=== PATIENT | female | born 2000 | race Caucasian/White ===

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

== ENCOUNTER 2021-02-26 13:50 | Emergency (ER) | payer OTHER, SELFPAY ==
--- NOTE | ~2021-02-26 | XR_ITS ---
EXAMINATION: XR wrist LT min 3V DATE: 02/26/2021 14:04 INDICATION: Left wrist pain TECHNIQUE: Posteroanterior, ulnar deviation, oblique, and lateral views of the left wrist were obtain ed. COMPARISON: None available FINDINGS: There is no fracture, dislocation, or subluxation. The bones, soft tissues, and joint space s are normal. IMPRESSION: 1. No acute osseous abnormality. Reviewed, dictated and finalized at location A. M SHOVELMAN
[2021-02-26 13:57] VITALS: BP 143/87; PULSE 99; RESP 16; TEMP 36.6; O2SAT 100
--- NOTE | 2021-02-26 13:58 | ED.UPPEXIN ---
HPI - Extremity Injury (Upper) General Chief Complaint: Extremity Injury, Upper Stated Complaint: lt wrist injury Time Seen by Provider: 02/26/21 14:00 Source: patient, RN notes reviewed and old records reviewed Mode of arrival: ambulatory Limitations: no limitations History of Present Illness HPI narrative: 20 year old female presents to [facility] with complaints of left wrist pain along ulnar side with no known injury to her left wrist. Patient reports pain to her left wrist for the past 2 days with movement. Patient reports increase pain with supination of her left hand at the ulnar aspect of her left wrist Patient reports no tingling or numbness to her left hand or arm, patient has strong left radial pulse, nail bed have brisk capillary refill. MD complaint: injury to: left and wrist Related Data Allergies Allergy/AdvReac Type Severity Reaction Status Date / Time Sulfa (Sulfonamide Allergy Rash Verified 10/25/20 14:07 Antibiotics) Review of Systems Review of Systems: CONSTITUTIONAL: Denies fever, chills, or sweats. EYES: Denies visual changes, redness, or discharge. ENT: Denies rhinorrhea, congestion, sore throat, or otalgia. CARDIOVASCULAR: Denies chest pain, palpitations, or edema. RESPIRATORY: Denies cough or dyspnea. GASTROINTESTINAL: Denies abdominal pain, nausea, vomiting, or diarrhea. GENITOURINARY: Denies dysuria or hematuria. SKIN: Denies rash or itching. MUSCULOSKELETAL: Denies back pain,positive for left outer wrist joint pain, or myalgia. NEUROLOGIC: Denies headache, numbness, or weakness. PSYCHIATRIC: Denies anxiety or depression. All systems reviewed & are unremarkable except as noted in HPI and below PMFSH Past Medical History Medical History (Updated 02/26/21 @ 14:27 by Lexus Alfaro NP) Acid reflux UTI (urinary tract infection) Surgical History Surgical History (Updated 02/26/21 @ 14:27 by Lexus Alfaro NP) No history of previous surgery Family History Family History Grandparent Blood clot in vein Breast cancer Diabetes mellitus Hypertension Father Hypertension Social History Social History Smoking status: Never smoker Alcohol intake: never Substance use: never Gender identity (if verbalized by the patient): Female Comments At time of signature, agree with nursing past medical, surgical, social and family history. There is no relevant family history pertinent to the presenting complaint Exam Narrative: GENERAL: Well-appearing, well-nourished, and in no acute distress. HEAD: Normocephalic, atraumatic. EYES: PERRLA and EOMI. ENT: Nares clear, no rhinorrhea or epistaxis. Mucous membranes moist. NECK: Supple. no lymphadenopathy CHEST: Clear to auscultation. No respiratory distress.SAO2 100% on room air HEART: Regular rate and rhythm. No murmur heard. Normal peripheral pulses. ABDOMEN: Soft, nontender, nondistended, normal active bowel sounds. EXTREMITIES: Normal range of motion. No edema.painful ROM to her left wrist along ulnar side with no acute swelling, full ROM noted but with stated discomfort.Patient has strong left radial pulse with left hand and fingers pink and warm with brisk capillary refill to nail beds, patient denies any tingling or numbness to left hand or forearm. SKIN: Warm, dry, no rash. NEURO: No focal deficits. Alert and oriented x3. Course Vital Signs Vital signs: Vital Signs Temperature 36.6 C 02/26/21 13:57 Pulse Rate 99 02/26/21 13:57 Respiratory Rate 16 02/26/21 13:57 Blood Pressure 143/87 H 02/26/21 13:57 Pulse Oximetry 100 02/26/21 13:57 Temperature 36.6 C 02/26/21 13:57 Pulse Rate 99 02/26/21 13:57 Respiratory Rate 16 02/26/21 13:57 Blood Pressure 143/87 H 02/26/21 13:57 Pulse Oximetry 100 02/26/21 13:57 MDM - Extremity Injury (Upper) Differential Diagnosis Differential diagn
== END 2021-02-26 14:23 | disposition home or self-care (01) ==
PROVIDERS: Emergency Provider Registered Nurse; PCP Pediatrics
DX: S63.502A Unspecified sprain of left wrist, initial encounter (principal); S66.912A Strain of unspecified muscle, fascia and tendon at wrist and hand level, left hand, initial encounter; X58.XXXA Exposure to other specified factors, initial encounter; K21.9 Gastro-esophageal reflux disease without esophagitis
CPT/HCPCS: 73110; 99213; G0463

== ENCOUNTER → 2021-03-15 08:36 | Outpatient (CLI) | payer OTHER, SELFPAY ==
[2021-03-16 02:02] LABS: SARS-CoV-2 RNA PCR Negative
== END ==
PROVIDERS: PCP Pediatrics; Visit Provider Pediatrics
DX: R09.81 Nasal congestion (principal); R06.7 Sneezing; Z20.822 Contact with and (suspected) exposure to COVID-19
CPT/HCPCS: C9803; U0003; U0005

== ENCOUNTER 2021-04-04 12:22 | Outpatient (CLI) | payer OTHER, SELFPAY ==
[2021-04-04 13:54] LABS: SARS-CoV-2 RNA PCR Positive (Negative)
== END 2021-04-04 12:23 | disposition home or self-care (01) ==
LOC: CHSLAB 12:24
PROVIDERS: PCP Pediatrics; Visit Provider Pediatrics
DX: U07.1 COVID-19 (principal)
CPT/HCPCS: C9803; U0003; U0005

== ENCOUNTER 2021-06-15 17:36 | Emergency (ER) | payer OTHER, SELFPAY ==
[2021-06-15 17:42] VITALS: BP 132/79; PULSE 82; RESP 16; TEMP 36.6; O2SAT 100
--- NOTE | 2021-06-15 17:50 | ED.BACK ---
HPI - Back Pain/Injury General Chief Complaint: Back Pain/Injury Stated Complaint: BACK PAIN/CHEST PAIN Time Seen by Provider: 06/15/21 17:45 Source: patient Mode of arrival: ambulatory Limitations: no limitations History of Present Illness HPI Narrative: Ms. Clark is a 20-year-old female patient presenting to the clinic today with complaints of mid back pain/mid chest pain that started today. She reports that her back pain began when she woke up this morning but that has since resolved but when she went to work this evening she began to have midsternal chest pain that was sharp. She rates her pain a 6 out of 10 currently. Pain is nonradiating. She denies any shortness of breath, dizziness, palpitations,or current back pain. Does have a history of GERD denies any burning sensation with this chest discomfort. She denies any fever chills or any urinary symptoms. When asked what she ate prior to this episode she had stated she has not eaten yet. No history of any cardiac issues in the past. No history of anxiety. Denies recent working out or any heavy lifting. Just finished her shift at [employer] prior to arrival to the [facility]. MD elicited complaint: back pain and other (Midsternal chest pain) Related Data Allergies Allergy/AdvReac Type Severity Reaction Status Date / Time Sulfa (Sulfonamide Allergy Rash Verified 10/25/20 14:07 Antibiotics) Review of Systems Review of Systems: Pertinent positives per HPI. Patient denies any fever, chills, rash, headache, visual changes, dizziness, cough, runny nose, sore throat, shortness of breath, palpitations, nausea, vomiting, diarrhea, constipation, abdominal pain, or any urinary issues. [facility] Past Medical History Medical History Acid reflux UTI (urinary tract infection) Surgical History Surgical History No history of previous surgery Family History Family History Grandparent Blood clot in vein Breast cancer Diabetes mellitus Hypertension Father Hypertension Social History Social History Smoking status: Never smoker Alcohol intake: never Substance use: never Gender identity (if verbalized by the patient): Female Comments At the time of my signature, I reviewed and agree with the nursing past medical, surgical, social, and family history. There is no relevant family history pertinent to the patient complaint. Exam Narrative: General: Well-developed, obese, in no apparent distress. Head: Normocephalic, atraumatic Chest: Grossly normal appearance, even chest rise and fall with inspiration and expiration, pain to light palpation over the upper sternum Cardio: Regular rate and rhythm, s1 and s2 normal, no murmur appreciated. Resp: Clear to auscultation bilaterally, no rhonchi, rales, wheezing or rubs. Abdomen: Soft, pliable, bowel sounds present in all quadrants, non-tender to palpation, no organomegly, no CVAT tenderness. Course Course Emergency Course: Portions of this record may have been created with voice recognition software. Level of Care: Express Care Visit Vital Signs Vital signs: Vital Signs Temperature 36.6 C 06/15/21 17:42 Pulse Rate 82 06/15/21 17:42 Respiratory Rate 16 06/15/21 17:42 Blood Pressure 132/79 06/15/21 17:42 Pulse Oximetry 100 06/15/21 17:42 Temperature 36.6 C 06/15/21 17:42 Pulse Rate 82 06/15/21 17:42 Respiratory Rate 16 06/15/21 17:42 Blood Pressure 132/79 06/15/21 17:42 Pulse Oximetry 100 06/15/21 17:42 Vital signs reviewed MDM - Back Pain/Injury MDM Narrative Medical decision making narrative: At the time of assessment patient is resting comfortably, rating her pain a 6 out of 10-stating it is a stabbing pain in the mid upper ches
--- NOTE | 2021-06-15 17:55 | ECG_ITS ---
Measurements Intervals Shanks Rate: 75 P: 19 ME: 169 QRS: 14 QRSD: 100 T: 15 QT: 364 QTc: 407 Interpretive Statements SINUS RHYTHM NO PREVIOUS ECG AVAILABLE FOR COMPARISON Electronically Signed On 06-16-2021 13:55:15 CDT by Karol Kimball M.D.
== END 2021-06-15 18:16 | disposition home or self-care (01) ==
PROVIDERS: Emergency Provider Nurse Practitioner Family; PCP Pediatrics
DX: M94.0 Chondrocostal junction syndrome [Tietze] (principal); K21.9 Gastro-esophageal reflux disease without esophagitis
CPT/HCPCS: 93005; 99213; G0463

== ENCOUNTER 2021-06-16 03:15 | Emergency (ER) | payer OTHER, SELFPAY ==
[2021-06-16 03:16] VITALS: PULSE 88; RESP 16; TEMP 36.6; O2SAT 100
--- NOTE | 2021-06-16 03:23 | ED.EAR ---
HPI - Ear Problem General Chief complaint: Ear Stated complaint: Ear problems Time Seen by Provider: 06/16/21 03:23 Source: patient and family History of Present Illness HPI Narrative: 20-year-old female presents to the ER with -- woke up this morning with severe left-sided ear pain. -- Left ear discharge for the past few days -- sore throat. Patient went to and urgent care yesterday evening for chest pain and back pain. Patient was diagnosed to have acute costochondritis and prescribed ibuprofen. MD Complaint: ear pain and ear discharge Location: left ear Duration: constant Severity: severe Relieving factors: nothing Exacerbating factors: nothing Discharge from ear: Reports yes - purulent Related Data Allergies Allergy/AdvReac Type Severity Reaction Status Date / Time Sulfa (Sulfonamide Allergy Rash Verified 10/25/20 14:07 Antibiotics) Review of Systems Review of Systems: All systems reviewed & are unremarkable except as noted in HPI and below Constitutional: Constitutional: Reports as per HPI and Reports no additional constitutional complaints Eyes: Eyes: Reports as per HPI and Reports no additional eye complaints ENT: Reports system reviewed and no additional complaints, except as documented Comments: Left ear pain and discharge Cardiovascular: Cardiovascular: Reports as per HPI and Reports no additional cardiovascular complaints Respiratory: Respiratory: Reports as per HPI and Reports no additional respiratory complaints Gastrointestinal: Gastrointestinal: Reports as per HPI and Reports no additional gastrointestinal complaints Genitourinary: Genitourinary: Reports no additional female genitourinary complaints Musculoskeletal: Musculoskeletal: Reports no additional musculoskeletal complaints Integumentary/Breasts: Skin/Breast: Reports system reviewed and no additional complaints, except as docu Neurologic: Reports system reviewed and no additional complaints, except as documented Psychiatric: Psychiatric: Reports no additional psychiatric complaints and Reports as per HPI Endocrine: Endocrine: Reports no additional endocrine complaints and Reports as per HPI Hematologic/Lymphatic: Hematologic/Lymphatic: Reports no additional hematologic/lymphatic complaints and Reports as per HPI Allergic/Immunologic: Allergic/Immunologic: Reports no additional allergic/immunologic complaints and Reports as per HPI PMFSH Past Medical History Medical History Acid reflux UTI (urinary tract infection) Surgical History Surgical History No history of previous surgery Family History Family History Grandparent Blood clot in vein Breast cancer Diabetes mellitus Hypertension Father Hypertension Social History Social History Smoking status: Never smoker Alcohol intake: never Substance use: never Gender identity (if verbalized by the patient): Female Exam Const: General: no acute distress and alert Orientation/consciousness: patient oriented x3 HENMT: Head: normal to inspection Ears: TM abnormal Other: left ear tympanic membrane erythematous creamy discharge in the external auditory canal. Eyes: Conjunctivae: conjunctivae normal Pupils: Equal, round and reactive pupils present Neck: Neck: normal visual inspection and no lymphadenopathy Chest: Chest palpation & inspection: normal inspection of the chest and abnormal inspection of the chest Resp: Effort & Inspection: normal respiratory effort Auscultation: clear to auscultation bilaterally Cardio: Rate: regular rate Rhythm: regular rhythm GI: GI Palp: Yes Soft to palpation : General: Yes no CVA tenderness Back/Spine/Pelvis: Back: no CVA tenderness Skin: General skin exam: normal color Rashes: no rashe
[2021-06-16] MEDS: NEOMYCIN/POLYMYXIN/HYDROCORT OT SUSP 10 ML BTL (*BKC) 3 DROP LEFT EAR (03:40)
[2021-06-16] MEDS: HYDROcodone/acetaminophen (*CRX) 5-325 MG TABLET 1 TAB PO (03:45)
[2021-06-16] MEDS: AMOXICILLIN/CLAVULANATE K 875-125 MG TAB 1 TABLET PO (03:45)
[2021-06-16 04:00] VITALS: PULSE 80; RESP 16; TEMP 36.6; O2SAT 98
== END 2021-06-16 04:01 | disposition home or self-care (01) ==
PROVIDERS: Emergency Provider Internal Medicine Critical Care Medicine; PCP Pediatrics
DX: H66.015 Acute suppurative otitis media with spontaneous rupture of ear drum, recurrent, left ear (principal)
CPT/HCPCS: 99283; A9270

== ENCOUNTER 2022-02-28 14:11 | Emergency (ER) | payer OTHER, SELFPAY ==
[2022-02-28 14:23] VITALS: BP 126/81; PULSE 90; RESP 24; TEMP 36.3; O2SAT 100
--- NOTE | 2022-02-28 14:49 | ED.URI ---
HPI - URI/Sore Throat General Chief Complaint: Upper Respiratory Infection Stated Complaint: Congestion,Sore Throat Time Seen by Provider: 02/28/22 14:40 Source: patient Mode of arrival: ambulatory Limitations: no limitations History of Present Illness HPI Narrative: The patient presents today complaining of 3 day history of cough, congestion, sore throat. She is currently pain-free. She is not taking Mucinex without relief. Reports brother with similar symptoms was diagnosed with strep a few days ago. Related Data Home Medications Medication Instructions Recorded Confirmed No Home Medications 02/28/22 02/28/22 Allergies Allergy/AdvReac Type Severity Reaction Status Date / Time Sulfa (Sulfonamide AdvReac Mild Rash Verified 02/28/22 14:19 Antibiotics) Review of Systems Review of Systems: CONSTITUTIONAL: Denies body aches, fever, chills, or sweats. EYES: Denies visual changes, redness, or discharge. ENT: Denies rhinorrhea, or otalgia.+ Congestion, sore throat CARDIOVASCULAR: Denies chest pain, palpitations, or edema. RESPIRATORY: Denies dyspnea.+ cough GASTROINTESTINAL: Denies abdominal pain, nausea, vomiting, or diarrhea. GENITOURINARY: Denies dysuria or hematuria. SKIN: Denies rash, itching, or wounds. MUSCULOSKELETAL: Denies back pain, joint pain, or myalgia. NEUROLOGIC: Denies headache, numbness, tingling, or weakness. PSYCH: Denies depression or anxiety. [facility] Past Medical History Medical History Acid reflux History of COVID-19 04/04/21 UTI (urinary tract infection) Surgical History Surgical History No history of previous surgery Family History Family History Grandparent Blood clot in vein Breast cancer Diabetes mellitus Hypertension Father Hypertension Social History Social History Smoking status: Never smoker Alcohol intake: never Substance use: never Gender identity (if verbalized by the patient): Female Comments At time of signature, I have reviewed and agree with nursing past medical, surgical, social and family history unless otherwise noted. Please see nursing chart for further information. There is no relevant family history pertinent to the presenting complaint Exam Narrative: GENERAL: Well-appearing, well-nourished, and in no acute distress. HEAD: Normocephalic, atraumatic. EYES: EOMI. No redness or drainage. Conjunctivae normal. ENT: Mucous membranes pink and moist. Nares clear. No rhinorrhea. TMs normal bilaterally. Throat mildly erythematous without edema or exudate. Uvula midline. NECK: Normal AROM. Supple. No lymphadenopathy. CHEST: No respiratory distress. Clear to auscultation. HEART: Regular rate and rhythm. No murmur appreciated. Normal peripheral pulses. EXTREMITIES: Normal range of motion. No edema. SKIN: Warm, dry, no rash. Capillary refill normal. Normal skin turgor. NEURO: No focal deficits. Alert and oriented x3. Gait steady. PSYCH: Normal affect. No signs of depression or anxiety. Course Course Level of Care: Express Care Visit Vital Signs Vital signs: Vital Signs Temperature 97.3 F L 02/28/22 14:23 Pulse Rate 90 02/28/22 14:23 Respiratory Rate 24 H 02/28/22 14:23 Blood Pressure 126/81 02/28/22 14:23 Pulse Oximetry 100 02/28/22 14:23 Oxygen Delivery Room Air 02/28/22 14:23 Temperature 97.3 F L 02/28/22 14:23 Pulse Rate 90 02/28/22 14:23 Respiratory Rate 24 H 02/28/22 14:23 Blood Pressure 126/81 02/28/22 14:23 Pulse Oximetry 100 02/28/22 14:23 Oxygen Delivery Room Air 02/28/22 14:23 Reviewed. Pt has been instructed to follow up with her PCP regarding her elevated blood pressure today. MDM - URI/Sore Throat Differential Diagnosis Diff
== END 2022-02-28 14:54 | disposition home or self-care (01) ==
PROVIDERS: Emergency Provider Nurse Practitioner; PCP Pediatrics
DX: J06.9 Acute upper respiratory infection, unspecified (principal)
CPT/HCPCS: 87081; 87880; 99213; G0463

== ENCOUNTER 2023-03-21 14:45 | Emergency (ER) | payer OTHER, SELFPAY ==
[2023-03-21 14:56] VITALS: BP 136/75; PULSE 103; RESP 20; TEMP 36.1; O2SAT 98
--- NOTE | 2023-03-21 15:08 | ED.URI ---
HPI - URI/Sore Throat General Chief Complaint: Upper Respiratory Infection Stated Complaint: Cough/Chills Time Seen by Provider: 03/21/23 14:58 Source: patient and RN notes reviewed Mode of arrival: ambulatory Limitations: no limitations History of Present Illness HPI Narrative: Patient presents today complaining of 3 day history of cough with headache, chills, sweats, and subjective fever that started yesterday. Denies chest pain or shortness of breath. Currently rates her pain 5/10 and has tried no medication for symptoms prior to arrival. No history of asthma. Patient vapes. Related Data Home Medications Medication Instructions Recorded Confirmed No Home Medications 02/28/22 03/21/23 Allergies Allergy/AdvReac Type Severity Reaction Status Date / Time Sulfa (Sulfonamide AdvReac Mild Rash Verified 03/21/23 14:51 Antibiotics) Review of Systems Review of Systems: CONSTITUTIONAL: Denies body aches.+ subjective fever, chills, sweats EYES: Denies visual changes, redness, or discharge. ENT: Denies rhinorrhea, congestion, sore throat, or otalgia. CARDIOVASCULAR: Denies chest pain, palpitations, or edema. RESPIRATORY: Denies dyspnea.+ cough GASTROINTESTINAL: Denies abdominal pain, nausea, vomiting, or diarrhea. GENITOURINARY: Denies dysuria or hematuria. SKIN: Denies rash, itching, or wounds. MUSCULOSKELETAL: Denies back pain, joint pain, or myalgia. NEUROLOGIC: Denies numbness, tingling, or weakness.+ headache PSYCH: Denies depression or anxiety. [facility] Past Medical History Medical History Acid reflux History of COVID-19 04/04/21 UTI (urinary tract infection) Surgical History Surgical History No history of previous surgery Family History Family History Grandparent Blood clot in vein Breast cancer Diabetes mellitus Hypertension Father Hypertension Social History Social History Smoking status: Never smoker Alcohol intake: never Substance use: never Gender identity (if verbalized by the patient): Female Comments At time of signature, I have reviewed and agree with nursing past medical, surgical, social and family history unless otherwise noted. Please see nursing chart for further information. There is no relevant family history pertinent to the presenting complaint Exam Narrative: GENERAL: Mildly ill-appearing, well-nourished, and in no acute distress. HEAD: Normocephalic, atraumatic. EYES: EOMI. No redness or drainage. Conjunctivae normal. ENT: Mucous membranes pink and moist. Nares congested. No rhinorrhea. TMs normal bilaterally. Throat mildly erythematous without edema or exudate. Uvula midline. NECK: Normal AROM. Supple. No lymphadenopathy. CHEST: No respiratory distress. Clear to auscultation. HEART: Regular rate and rhythm. No murmur appreciated. EXTREMITIES: Normal range of motion. No edema. SKIN: Warm, dry, no rash. Capillary refill normal. Normal skin turgor. NEURO: No focal deficits. Alert and oriented x3. Gait steady. PSYCH: Normal affect. No signs of depression or anxiety. Course Course Level of Care: Express Care Visit Vital Signs Vital signs: Vital Signs Temperature 96.9 F L 03/21/23 14:56 Pulse Rate 103 H 03/21/23 14:56 Respiratory Rate 03/21/23 14:56 Blood Pressure 136/75 03/21/23 14:56 Pulse Oximetry 98 03/21/23 14:56 Oxygen Delivery Room Air 03/21/23 14:56 Temperature 96.9 F L 03/21/23 14:56 Pulse Rate 103 H 03/21/23 14:56 Respiratory Rate 20 03/21/23 14:56 Blood Pressure 136/75 03/21/23 14:56 Pulse Oximetry 98 03/21/23 14:56 Oxygen Delivery Room Air 03/21/23 14:56 Reviewed MDM - URI/Sore Throat MDM Narrative Medical decision making narrati
== END 2023-03-21 15:14 | disposition home or self-care (01) ==
PROVIDERS: Emergency Provider Nurse Practitioner; PCP Pediatrics
DX: J10.1 Influenza due to other identified influenza virus with other respiratory manifestations (principal); Z20.822 Contact with and (suspected) exposure to COVID-19; K21.9 Gastro-esophageal reflux disease without esophagitis; Z86.16 Personal history of COVID-19
CPT/HCPCS: 87426; 87804; 99213; C9803; G0463

== ENCOUNTER 2023-04-22 13:50 | Emergency (ER) | payer OTHER, SELFPAY ==
--- NOTE | ~2023-04-22 | XR_ITS ---
EXAM: XR ankle RT min 3V DATE: 04/22/2023 14:36 HISTORY: ROLLED ANKLE AT 3 AM, SWELLING/PAIN LATERALLY . COMPARISON: 05/28/2017. FINDINGS: Normal mineralization. Tiny avulsion at the tip of the lateral malleolus. No lytic or sacha tic lesion. Joint spaces are maintained. No erosion or periosteal change. Diffuse ankle soft tissue s welling. IMPRESSION: Small avulsion fracture at the tip of the lateral malleolus. Reviewed, dictated and finalized at location K. T [facility]
[2023-04-22 13:53] VITALS: BP 139/85; PULSE 75; RESP 17; TEMP 36.3; O2SAT 100
[2023-04-22] MEDS: ACETAMINOPHEN 500 MG TABLET 1000 MG PO (14:38)
--- NOTE | 2023-04-22 14:44 | ED.GENADULT ---
HPI - General Adult General Chief complaint: Extremity Injury, Lower Stated complaint: right ankle sprain Time Seen by Provider: 04/22/23 14:04 History of Present Illness HPI narrative: This is a 22-year-old female presenting with right ankle pain. She became intoxicated last night and tripped. She woke up this morning with ankle pain. She has been able ambulate. No other injuries. Related Data Allergies Allergy/AdvReac Type Severity Reaction Status Date / Time Sulfa (Sulfonamide AdvReac Mild Rash Verified 04/22/23 13:51 Antibiotics) [facility] Past Medical History Medical History Acid reflux History of COVID-19 04/04/21 UTI (urinary tract infection) Surgical History Surgical History No history of previous surgery Family History Family History Grandparent Blood clot in vein Breast cancer Diabetes mellitus Hypertension Father Hypertension Social History Social History Smoking status: Never smoker Alcohol intake: never Substance use: never Gender identity (if verbalized by the patient): Female Exam Narrative: APPEARANCE: No apparent distress. Head: atraumatic. EYES: EOMI, NOSE: Atraumatic NECK: Trachea midline RESPIRATORY: No increased rate of breathing CARDIOVASCULAR: RRR, ABDOMINAL: Non-distended MUSCULOSKELETAl: focal exam of the lower extremity revealed some swelling over the lateral malleolus. No significant bruising. No tenderness over the posterior medial or lateral malleolus or base of the 5th metatarsal. Cap refill less 2 seconds. Foot is warm to touch, motor function intact. NEURO: Alert. Moving 4/4 extremities SKIN:: Warm, dry. Normal color PSYCHIATRIC: Normal affect Course Vital Signs Vital signs: Vital Signs Temperature 97.4 F L 04/22/23 13:53 Pulse Rate 75 04/22/23 13:53 Respiratory Rate 17 04/22/23 13:53 Blood Pressure 139/85 04/22/23 13:53 Pulse Oximetry 100 04/22/23 13:53 Oxygen Delivery Room Air 04/22/23 13:53 Temperature 97.4 F L 04/22/23 13:53 Pulse Rate 75 04/22/23 13:53 Respiratory Rate 17 04/22/23 13:53 Blood Pressure 139/85 04/22/23 13:53 Pulse Oximetry 100 04/22/23 13:53 Oxygen Delivery Room Air 04/22/23 13:53 Medical Decision Making MDM Narrative Medical decision making narrative: -Course: 22-year-old with ankle pain. x-ray showed a small avulsion fracture at the tip of the lateral malleolus. Patient placed in an Bronson bandage wrap. Discharged primary care follow-up. -DDX includes but is not limited to: Soft tissue injury, osseous injury -Co-morbidities complicating care: alcohol intoxication -Social determinants of health: works at [employer], lives with her mom -Independent interpretation of studies: ankle negative for fracture. -Interventions: Tylenol 1000 mg -Shared decision making / Disposition: discharge -RX Motrin Tylenol Vital Signs Vital Signs: Vital Signs Temperature 97.4 F L 04/22/23 13:53 Pulse Rate 75 04/22/23 13:53 Respiratory Rate 17 04/22/23 13:53 Blood Pressure 139/85 04/22/23 13:53 Pulse Oximetry 100 04/22/23 13:53 Oxygen Delivery Room Air 04/22/23 13:53 Temperature 97.4 F L 04/22/23 13:53 Pulse Rate 75 04/22/23 13:53 Respiratory Rate 17 04/22/23 13:53 Blood Pressure 139/85 04/22/23 13:53 Pulse Oximetry 100 04/22/23 13:53 Oxygen Delivery Room Air 04/22/23 13:53 Discharge Plan Discharge Clinical Impression: Ankle sprain Patient Disposition: Home, Self-Care Condition: Stable Instructions: Antibiotic Form, Ankle Sprain (DC) Additional Instructions: Please follow-up with your primary care physician for further management. Take Motrin and Tylenol for pain. Prescriptions: New ibupro
[2023-04-22 16:24] VITALS: BP 138/78; PULSE 84; RESP 19; TEMP 36.6; O2SAT 99
[2023-04-22 16:30] VITALS: BP 123/62; PULSE 74; RESP 16; TEMP 36.7; O2SAT 100
== END 2023-04-22 16:30 | disposition home or self-care (01) ==
PROVIDERS: Emergency Provider Emergency Medicine; PCP Pediatrics
DX: S93.401A Sprain of unspecified ligament of right ankle, initial encounter (principal); W01.0XXA Fall on same level from slipping, tripping and stumbling without subsequent striking against object, initial encounter
CPT/HCPCS: 73610; 99283

== ENCOUNTER 2024-01-31 21:33 | Emergency (ER) | payer OTHER, SELFPAY ==
--- NOTE | ~2024-01-31 | XR_ITS ---
XR ankle LT min 3V Ordering provider: Jack Sweet MD History: . left ankle pain . Comparison: April 07, 2018 FINDINGS: BONES: No acute fracture or dislocation. JOINT SPACES: The ankle mortise is normal. SOFT TISSUES: Normal. IMPRESSION: No acute osseous abnormality left ankle. Reviewed, dictated and finalized at location A.
[2024-01-31 21:36] VITALS: BP 137/81; PULSE 98; RESP 18; TEMP 36.4; O2SAT 100
--- NOTE | 2024-01-31 21:42 | PC.NURSE ---
patient does not want dr leyva to evaluate her until she finds out about her insurance status.
--- NOTE | 2024-01-31 21:44 | ED_ITS ---
HPI - Extremity Injury (Lower) General Chief Complaint: Extremity Injury, Lower Stated Complaint: lower extremity issue Time Seen by Provider: 01/31/24 21:37 Source: patient Mode of arrival: ambulatory Limitations: no limitations History of Present Illness HPI Narrative: this is a 23-year-old female presents after she twisted her left ankle causing pain and swelling has good range of motion although tender and limited secondary to pain and swelling. complaint: ankle injury Onset (ago): hour(s) Injury: Left: ankle ( swollen with tenderness lateral malleoli) Type of Injury: inversion Place: street/outdoors Severity: moderate Severity scale (1-10): 7 Relieving factors: NSAID Related Data Allergies Allergy/AdvReac Type Severity Reaction Status Date / Time Sulfa (Sulfonamide AdvReac Mild Rash Verified 04/22/23 13:51 Antibiotics) Review of Systems Review of Systems: All systems reviewed & are unremarkable except as noted in HPI and below PMFSH Past Medical History Medical History Acid reflux History of COVID-19 04/04/21 UTI (urinary tract infection) Surgical History Surgical History No history of previous surgery Family History Family History Grandparent Blood clot in vein Breast cancer Diabetes mellitus Hypertension Father Hypertension Social History Social History Smoking status: Never smoker Alcohol intake: never Substance use: never Gender identity (if verbalized by the patient): Female Exam Const: General: healthy appearing and no acute distress Nutritional Appearance: well nourished Orientation/consciousness: patient oriented x3 Resp: Effort & Inspection: normal respiratory effort Auscultation: clear to auscultation bilaterally Cardio: Rate: regular rate Rhythm: regular rhythm GI: GI Palp: Yes Soft to palpation Skin: General skin exam: normal color Rashes: no rashes Neuro: General: patient oriented x3 and moves all extremities Extrem: Other: Tender with swelling lateral malleolus on the left ankle Course Course Emergency Course: patient declined any pain medicine that she received pain medicine at home x- ray performed reviewed showed no acute fracture Vital Signs Vital signs: Vital Signs Temperature 36.4 C 10/31/24 21:36 Pulse Rate 98 01/31/24 21:36 Respiratory Rate 18 01/31/24 21:36 Blood Pressure 137/81 01/31/24 21:36 Pulse Oximetry 100 01/31/24 21:36 Oxygen Delivery Room Air 01/31/24 21:36 Temperature 36.4 C 01/31/24 21:36 Pulse Rate 98 01/31/24 21:36 Respiratory Rate 18 01/31/24 21:36 Blood Pressure 137/81 01/31/24 21:36 Pulse Oximetry 100 01/31/24 21:36 Oxygen Delivery Room Air 01/31/24 21:36 Critical Care Time Critical Care Time Critical Care Time: No Discharge Plan Discharge Clinical Impression: Ankle sprain and strain Patient Disposition: Home, Self-Care Condition: Stable Instructions: Antibiotic Form, Ankle Sprain (ED) Prescriptions: No Action ibuprofen 800 mg tablet 800 mg PO TID PRN (Reason: pain) 7 Days Qty: 21 0RF acetaminophen 500 mg tablet 1,000 mg PO TID PRN (Reason: linda) 7 Days Qty: 42 0RF Follow-up/Referrals: Enio Pierre MD [Primary Care Provider] - Time of Disposition: 22:08
--- NOTE | 2024-01-31 21:47 | PC.NURSE ---
xray at the bedside
== END 2024-01-31 22:17 | disposition home or self-care (01) ==
PROVIDERS: Emergency Provider Emergency Medicine; PCP Pediatrics
DX: S93.402A Sprain of unspecified ligament of left ankle, initial encounter (principal); S96.912A Strain of unspecified muscle and tendon at ankle and foot level, left foot, initial encounter; X50.0XXA Overexertion from strenuous movement or load, initial encounter
CPT/HCPCS: 73610; 99283